=== PATIENT | male | born 1950 | race Caucasian/White ===

== ENCOUNTER 2017-04-25 15:48 | Emergency (ER) | payer MEDICARE, MEDICAID ==
[~2017-04-25] VITALS: Ht 170.2 cm; Wt 72.6 kg
[~2017-04-25 15:48] MED LIST: DIAZ2TAB PO; NOR7.5T GT; OXYCONTIN; OXYCTAB PO; [UNRECOGNIZED DRUG - CODE]; [UNRECOGNIZED DRUG - CODE] BU
[2017-04-25 16:59] VITALS: BP 151/76
== END 2017-04-25 17:10 | disposition home or self-care (01) ==
LOC: ER 15:51
DX: M94.0 Chondrocostal junction syndrome [Tietze] (principal); M19.90 Unspecified osteoarthritis, unspecified site; I25.10 Atherosclerotic heart disease of native coronary artery without angina pectoris; J44.9 Chronic obstructive pulmonary disease, unspecified; E07.89 Other specified disorders of thyroid; G89.29 Other chronic pain; M54.5 Low back pain; Z88.0 Allergy status to penicillin
CPT/HCPCS: 71101

== ENCOUNTER 2017-05-24 15:47 | Emergency (ER) | payer MEDICARE, MEDICAID ==
[~2017-05-24] VITALS: Ht 170.2 cm; Wt 72.6 kg
[2017-05-24 16:21] VITALS: BP 133/64
== END 2017-05-24 17:15 | disposition left against medical advice (07) ==
LOC: ER 16:01
DX: M54.2 Cervicalgia (principal); G89.29 Other chronic pain; Z53.21 Procedure and treatment not carried out due to patient leaving prior to being seen by health care provider

== ENCOUNTER 2021-04-16 19:32 | Emergency (ER) | payer MEDICARE, MEDICAID ==
[~2021-04-16] VITALS: Ht 170.2 cm; Wt 72.6 kg
[2021-04-16 23:43] VITALS: BP 155/80
== END 2021-04-16 23:51 | disposition home or self-care (01) ==
LOC: ER 19:35
DX: G89.29 Other chronic pain (principal); M54.5 Low back pain; M25.561 Pain in right knee; M25.562 Pain in left knee; M25.511 Pain in right shoulder; M79.641 Pain in right hand; J44.9 Chronic obstructive pulmonary disease, unspecified; F41.9 Anxiety disorder, unspecified; M19.90 Unspecified osteoarthritis, unspecified site; I25.10 Atherosclerotic heart disease of native coronary artery without angina pectoris; F32.9 Major depressive disorder, single episode, unspecified; Z87.442 Personal history of urinary calculi; Z79.899 Other long term (current) drug therapy; Z88.0 Allergy status to penicillin
CPT/HCPCS: 72100; 73020; 73120